=== PATIENT | female | born 1960 | race Caucasian/White ===

== ENCOUNTER 2023-09-05 15:39 | Emergency (ER) | payer OTHER, MEDICARE, BC ==
[~2023-09-05 15:39] MED LIST: Iopamidol-370 76% 500 ML MDV (1 ML CHARGE) ONE
[2023-09-05] MEDS ORDERED: Ketorolac Tromethamine 30 MG/ML VIAL ONE (15:49)
[2023-09-05] MEDS ORDERED: Morphine 4 MG/ML VIAL ONE ×2 (15:49→17:18)
[2023-09-05] MEDS ORDERED: Ondansetron PF 4 MG/2 ML Vial ONE (15:54)
== END 2023-09-05 17:35 | disposition home or self-care (01) ==
LOC: ERS 15:39
DX: S16.1XXA Strain of muscle, fascia and tendon at neck level, initial encounter (principal); S29.012A Strain of muscle and tendon of back wall of thorax, initial encounter; R51.9 Headache, unspecified; M54.50 Low back pain, unspecified; V69 Occupant of heavy transport vehicle injured in other and unspecified transport accidents
CPT/HCPCS: 70450; 71260; 72125; 74177; 96374; 96375; 96376; G0390; J1885; J2270; J2405; Q9967